=== PATIENT | female | born 1990 | race Caucasian/White ===

== ENCOUNTER 2018-09-30 20:24 | Inpatient (IN) ==
[2018-09-30] MEDS ORDERED: ONDANSETRON 4 MG/2 ML VIAL IV ONE (20:47)
[2018-09-30] MEDS ORDERED: 0.9 % SODIUM CHLORIDE 1,000 ML IV ONE (20:47)
--- NOTE | 2018-09-30 20:56 | Emergency Department Note ---
Abdominal Pain HPI - General Chief Complaint: Abdominal Pain Stated Complaint: abdominal pain Time Seen by Provider: 09/30/18 20:44 Source: patient Mode of arrival: ambulatory Limitations: no limitations - History of Present Illness HPI Narrative: 28-year-old female who previously diagnosed with gallstones on 09/22/2017 here comes in for 3-day history of worsening right upper quadrant pain. Is not taking any medicines for this. She is having some nausea and vomiting as well but no diarrhea. No fever. She is able to urinate. She has an appointment in 4 days with a surgeon over at [facility] Dr. Vernon Roque but pain was so severe that she came in here tonight. No fever no shortness of breath. She is times 5 weeks - Related Data Previous Rx's Medication Instructions Recorded peak flow meter See Dose Instructions .ROUTE 08/29/15 .MEDSUPPLY #1 each Albuterol Sulfate [Ventolin] 2.5 mg NEB Q4HRT #30 ampul.neb 07/01/16 albuterol sulfate HFA 90 3 puff INHALATION Q6H PRN #18 g 09/26/16 mcg/actuation aerosol inhaler acyclovir 800 mg tablet 800 mg PO BID 5 Days #10 tab 10/06/16 Ondansetron [Zofran ODT] 4 mg SL Q4-6HP PRN #14 tab 12/30/17 Allergies Allergy/AdvReac Type Severity Reaction Status Date / Time azithromycin [From Zithromax] AdvReac Unknown Nausea Verified 09/22/18 17:26 contrave AdvReac Intermediate Nausea Uncoded 06/30/16 14:58 Review of Systems All systems ED: reviewed and negative except as stated. Abdominal Pain PMH - Past Medical History Attestation: Yes: The following information was validated with the patient. 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 Jaundiced. Normocephalic atraumatic. Conjunctive are clear sclerae white and anicteric. No nasal discharge or congestion. Oropharynx is pink and moist. Posterior pharynx is clear. Neck is supple without lymphadenopathy or thyromegaly. Heart is regular rate and rhythm no murmur appreciated. Lungs clear to auscultation bilaterally without wheezes rales rhonchi or respiratory distress. Abdomen is soft diffusely tender but worse in the right upper quadrant. No peritoneal signs but some guarding. She is writhing around. No pedal edema. +2 radial pulse. Alert oriented able to answer questions Limitations: no limitations Course Vital Signs Temperature 97.8 F 09/30/18 20:25 Pulse Rate 112 H 09/30/18 20:25 Respiratory Rate 17 09/30/18 20:25 Blood Pressure 112/69 09/30/18 20:25 Pulse Oximetry (%) 96 09/30/18 20:25 Temperature 97.8 F 09/30/18 20:25 Pulse Rate 112 H 09/30/18 20:25 Respiratory Rate 17 09/30/18 20:25 Blood Pressure 112/69 09/30/18 20:25 Pulse Oximetry (%) 96 09/30/18 20:25 Abdominal Pain - Radiology Data Radiology results reviewed: Yes I reviewed the patient's radiology results. Reviewed ultrasound from 09/22/2018 which shows gallstones but no thickened wall. Fatty liver Disposition Pt seen by REFERENCE LIBRARIAN/PA only: No Clinical Impression: Cholecystolithiasis Qualifiers: Cholecystitis presence: with cholecystitis Cholecystitis acuity: acute Summary: Patient was seen and evaluated. Laboratory ordered. IV fluids started along with pain medicine and nausea medicine. Patient will be checked out to Dr. Green at 9 PM for further care and evaluation Disposition: Still a Patient Condition: Serious Referrals: No,PCP [Primary Care Provider] -
[2018-09-30] MEDS: HYDROmorphone 2 MG/ML VIAL IV PRN ×4 (21:00→23:46)
--- NOTE | 2018-09-30 21:14 | Emergency Department Note ---
Abdominal Pain HPI - General Chief Complaint: Abdominal Pain Stated Complaint: abdominal pain Time Seen by Provider: 09/30/18 20:44 Source: patient Mode of arrival: ambulatory Limitations: no limitations - History of Present Illness HPI Narrative: 28 year old female assumed care from Dr. Parker as of 21:13 previously diagnosed with gallstones on 09/22/2017 presenting with 3-day history of worsening right upper quadrant pain, nausea, no emesis nor diarrhea No fever. She is able to urinate. She has an appointment in 4 days with a surgeon over at [facility] Dr. Vernon Roque but pain was so severe that she came in here tonight. No fever no shortness of breath. She is times 5 weeks - Related Data Home Medications Medication Instructions Recorded Confirmed No Known Home Meds 09/30/18 09/30/18 Allergies Allergy/AdvReac Type Severity Reaction Status Date / Time azithromycin [From Zithromax] AdvReac Unknown Nausea Verified 09/22/18 17:26 contrave AdvReac Intermediate Nausea Uncoded 06/30/16 14:58 Review of Systems All systems ED: reviewed and negative except as stated. Abdominal Pain PMH - Past Medical History Attestation: Yes: The following information was validated with the patient. 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 Absent: rigidity Course Vital Signs Temperature 97.8 F 09/30/18 20:25 Pulse Rate 112 H 09/30/18 20:25 Respiratory Rate 17 09/30/18 20:25 Blood Pressure 112/69 09/30/18 20:25 Pulse Oximetry (%) 96 09/30/18 20:25 Temperature 97.8 F 09/30/18 20:25 Pulse Rate 79 09/30/18 21:23 Respiratory Rate 17 09/30/18 20:25 Blood Pressure 122/70 09/30/18 21:23 Pulse Oximetry (%) 97 09/30/18 21:23 Abdominal Pain - [facility] Narrative Medical decision making narrative: patient demonstrating on CBC leukocytosis of 15.8, with known cholelithiasis. venous lactic acid 0.9, CMP normal. US abdomen previously demonstrating multiple small stone collection. Given total of 1mg Diluadid IV, with pain improving from 8/10 to 5/10. Given 1LPM NS. Consulted Dr. Roque, admitted for acute cholecystitis, made NPO, admitted as observation, admitted in fair condition. - Lab Data Lab results reviewed: Yes I reviewed the patient's lab results. Result diagrams: 09/30/18 21:00 09/30/18 21:00 Lab Results 09/30/18 09/30/18 Range/Units 21:00 21:05 WBC 15.7 H (4.5-11.0) K/mcL RBC 4.98 (4.00-5.20) M/mcL Hgb 12.3 (12.0-15.0) g/dL Hct 38.1 (36.0-48.0) % MCV 76.5 L (80.0-100.0) fL MCH 24.7 L (26.0-34.0) pg MCHC 32.3 (31.0-36.0) g/dL RDW 17.7 H (11.5-14.5) % Plt Count 412 (140-440) K/mcL MPV 9.0 (7.4-10.4) fL Band Neutrophils % Not Reportable VBG Lactic Acid 0.9 (0.5-2.0) mmol/L Disposition Pt seen by [employer]/PA only: No Clinical Impression: Cholecystolithiasis Qualifiers: Cholecystitis presence: with cholecystitis Cholecystitis acuity: acute Biliary obstruction: without biliary obstruction Qualified Code(s): K80.00 - Calculus of gallbladder with acute cholecystitis without obstruction Disposition: Xfer As Outpt/Obs ([facility]) Condition: Serious Referrals: No,PCP [Primary Care Provider] -
[2018-09-30 21:57] LABS: Mean Cell Volume 76.5 fL (80.0-100.0); Mean Corpuscular HGB Conc 32.3 g/dL (31.0-36.0); Platelet Count 412 K/mcL (140-440); RBC 4.98 M/mcL (4.00-5.20); Red Cell Distribution Width 17.7 % (11.5-14.5)
[2018-09-30] MEDS ORDERED: cefTRIAXone 1 GM in DEXTROSE 5% IN WATER 50 ML IV SCH (22:15)
[2018-09-30 22:20] LABS: ALT/SGPT 498 U/l (0-40); Albumin 3.6 gm/dL (3.2-5.2); Albumin/Globulin Ratio 1.4 (1.0-2.3); Alkaline Phosphatase 281 U/L (39-117); Amylase 1171 U/L (28-100); Blood Urea Nitrogen 11 mg/dl (6-20)
[2018-09-30] MEDS ORDERED: GADOBENATE DIMEGLUMINE 20 ML/VIAL IV ONE (22:45)
[2018-09-30] MEDS ORDERED: cefTRIAXone 1 GM VIAL ONE (22:56)
[2018-09-30 23:01] LABS: Anisocytosis 1+ (NONE SEEN); Hypochromasia 2+ (NONE SEEN); Lymphocytes % 10 % (15-49); Monocytes % (Manual) 4 % (1-12); Platelet Estimate NORMAL (NORMAL); RBC Morphology ABNORM (NORMAL); Segmented Neutrophils % 86 % (38-78)
[2018-09-30] MEDS: 0.9 % SODIUM CHLORIDE 1,000 ML IV SCH (23:05)
[2018-09-30 23:19] LABS: Lipase 15880 U/L (7-60)
[2018-10-01] MEDS: ONDANSETRON 4 MG/2 ML VIAL IV PRN ×5 (00:48→19:34)
[2018-10-01] MEDS: HYDROmorphone 2 MG/ML VIAL IV PRN ×8 (01:46→19:34)
[2018-10-01] MEDS: 0.9 % SODIUM CHLORIDE 10 ML SYRINGE IV SCH ×3 (05:51→21:33)
[2018-10-01] MEDS: 0.9 % SODIUM CHLORIDE 1,000 ML IV SCH ×3 (06:48→18:42)
[2018-10-01] MEDS ORDERED: ACETAMINOPHEN 1,000 MG/100 ML BOTTLE IV ONE ×3 (08:12→19:31)
[2018-10-01 08:49] LABS: Appearance,Urine CLEAR; Bacteria,Urine 0 /hpf (0); Color,Urine AMBER; Glucose,Urine (UA) NEGATIVE (NEG); Ictotest,Urine POS (NEG); Leukocyte Esterase,Urine NEG /uL (NEG); Mucus,Urine MOD /hpf (0); Protein,Urine 30 mg/dL (NEG); Specific Gravity,Urine 1.021 (1.000-1.035); Urine Blood NEG mg/dL (<0.03); Urine Hyaline Cast 1 /lpf (0-2); Urine RBC 2 /hpf (0-1); Urine Squamous Epithelial Cell 3 /hpf (0-4); Urine WBC 8 /hpf (0-4); Urobilinogen,Urine NEG (NEG)
[2018-10-01] MEDS: ACETAMINOPHEN 1,000 MG in PREMIX 1 BAG IV SCH ×3 (08:56→19:37)
[2018-10-01 09:32] LABS: ALT/SGPT 398 U/l (0-40); Albumin 3.5 gm/dL (3.2-5.2); Albumin/Globulin Ratio 1.3 (1.0-2.3); Alkaline Phosphatase 265 U/L (39-117); Bilirubin,Direct 0.6 mg/dL (0.0-0.3); Blood Urea Nitrogen 11 mg/dl (6-20); Gamma Glutamyl Transpeptidase 415 U/L (5-36); Uric Acid 7.3 mg/dL (2.5-8.0)
[2018-10-01] MEDS: PIPERACILLIN SODIUM/TAZOBACTAM 3.375 GM in DEXTROSE 5% IN WATER 50 ML IV SCH ×4 (10:15→23:03)
--- NOTE | 2018-10-01 11:03 | Magnetic Resonance Report ---
History: Gallstones, abdominal pain and elevated liver enzymes TECHNIQUE: Multiplanar imaging was performed using multiple pulse sequences. 20 mL of MultiHance contrast was injected intravenously and multiphasic postcontrast views were obtained. MRCP images were also created. FINDINGS: There are multiple stones within the lumen of the gallbladder. Gallbladder wall is not abnormally thickened or inflamed. The common bile duct is dilated measures up to 8 mm. No obvious stone is detected in the distal common bile duct. The intrahepatic ducts are nondilated. The liver and spleen are normal in size and homogeneous, without evidence of a mass or inflammation. There is normal enhancement of the hepatic and portal veins. The pancreas is diffusely enlarged. It has increased in size since prior ultrasound done on 09/22/18. Pancreatic duct is nondilated. There is low-level inflammation of the peripancreatic fat and mild stranding of the fat number the mesentery. Trace amount of ascites is seen in the right paracolic gutter. There is no pseudocyst and no evidence of pancreatic mass. The adrenals and kidneys are normal. The aorta is normal in caliber. No adenopathy is present. IMPRESSION: Cholelithiasis Dilated extrahepatic bile ducts. There may be a nonvisualized stone in the distal duct. New onset pancreatitis Interpreted and Authenticated by: Jose Luis Beal 10/01/18
--- NOTE | 2018-10-01 14:27 | General Surg History&Physical ---
History of Present Illness Patient information: Note initiated : 10/01/18 at 2:24 pm Service Date, if different from initiated Date: [09/30/2018] Patient: Amira Kay 28 y/o F admitted on 10/01/18 for abdominal pain. Chief Complaint: [28-year-old female admitt on 30 September for treatment of gallstones disease. The patient had onset of right upper quadrant pain first week of September. Became progressively worse and she was seen in the emergency room on 22 September with complaints of abdominal pain nausea and vomiting. She was noted to have elevation of her liver enzymes including phosphatase. Ultrasound showed fatty liver and gallstones. She was treated symptomatically and discharged to have follow-up with her primary physician. The pain has become progressively worse since that time. Over the past 3 days she has had constant pain with nausea and vomiting after all by mouth intake. She finally returned to the emergency room where on examination she had a tender abdomen with major elevation of liver transaminases and bilirubin. She also had significant elevation amylase and lipase suggestive of biliary pancreatitis.] HPI: Ms. Kay is a 28 year old F Review of Systems - Constitutional anorexia, fatigue, malaise, weight gain - EENT Nose, mouth and throat: no hoarseness, no neck pain, no sinus pain, no sore throat, no tongue swelling - Breasts other (active breast-feeding) - Cardiovascular no dyspnea on exertion, no edema, no leg edema, no palpatations, no rapid heart rate, no syncope - Respiratory cough, wheezing, snoring, no dyspnea on exertion - Gastrointestinal abdominal pain, bloating, cramping, dyspepsia, heartburn, nausea, vomiting - Genitourinary Genitourinary: breast swelling, nocturia, urinary frequency, urinary urgency - Musculoskeletal no arthralgias, no joint swelling, no myalgias - Integumentary no new lesions, no pruritus, no rash, no jaundice - Neurological no headache(s), no paresthesias, no weakness - Psychiatric no anxiety, no confusion, no depression, no irritability, no mood swings - Endocrine no excessive sweating, no palpitations - Hematologic/Lymphatic no easy bleeding, no easy bruising, no lymphadenopathy - Allergic/Immunologic no tongue swelling, no throat swelling, no uticaria, no wheezing, no lip swelling Past History Past medical history: Chronic asthma Gastroesophageal reflux is Past surgical history: Right cervical node biopsies Tonsillectomy Past family history: Diabetes mellitus Past social history: Occasional alcohol use Denies tobacco use Denies drug use Medications and Allergies Home Medications Medication Instructions Recorded Confirmed Type No Known Home Meds 09/30/18 09/30/18 History Allergies Allergy/AdvReac Type Severity Reaction Status Date / Time azithromycin [From Zithromax] AdvReac Intermediate Nausea Verified 09/30/18 23:56 contrave AdvReac Intermediate Nausea Uncoded 06/30/16 14:58 Exam Temp Pulse Resp BP Pulse Ox 98 F 98 H 20 103/67 92 10/01/18 11:45 10/01/18 03:35 10/01/18 11:45 10/01/18 11:45 10/01/18 11:45 - General physical appearance well developed, well nourished, no distress, other ( overweight) - Eyes PERRL, normal ocular movement, icteric - ENT normal pinna, normal nares, normal mucosa, no hearing loss, no congestion - Head Head exam IM: Present: atraumatic, normocephalic - Neck no masses, no bruits, trachea midline, no lymphadenopathy, no venous distension - Cardiovascular Cardiovascular exam IM: Present: normal rate and rhythm, RRR, +S1, +S2. Absent: irregular rhythm, JVD, systolic murmur, tachycardia - Respiratory normal expansion, normal respiratory effort, clear to auscultation - Abdomen Abdomen: Present: soft, tender ( right upper quadrant; subcostal; epigastric tenderness; mild distention), bowel sounds Hernia: Present: none - Genitourinary Present: normal external genitalia - Integumentary Present: no rash, no growths, no abnormal pigmentation - Neurologic Present: normal coordination, normal sensation - Musculoskeletal Present: normal gait, normal posture - Psychiatric Present: oriented to time, oriented to person, oriented to place, speech is normal, memory intact Assessment and Plan (1) Cholelithiasis and acute cholecystitis without obstruction Will have cholecystectomy with cholangiogram after pancreatitis is improved Status: Acute (2) Acute biliary pancreatitis MRCP to be done today Status: Acute (3) Bronchial asthma Continue home medications Status: Chronic
[2018-10-01] MEDS: PANTOPRAZOLE 40 MG VIAL IV SCH ×2 (16:11→23:07)
[2018-10-01] MEDS: FLUCONAZOLE 100 MG TABLET PO SCH (16:11)
[2018-10-01] MEDS ORDERED: ALBUTEROL SULFATE 1 PUFF INHALER INH PRN (16:44)
[2018-10-01] MEDS ORDERED: IPRATROPIUM/ALBUTEROL 3 ML AMPUL.NEB NEB ONE (19:58)
[2018-10-02] MEDS: HYDROmorphone 2 MG/ML VIAL IV PRN ×7 (01:02→20:59)
[2018-10-02] MEDS ORDERED: ACETAMINOPHEN 1,000 MG/100 ML BOTTLE IV ONE (01:05)
[2018-10-02] MEDS: ONDANSETRON 4 MG/2 ML VIAL IV PRN ×4 (01:08→21:00)
[2018-10-02] MEDS: 0.9 % SODIUM CHLORIDE 1,000 ML IV SCH ×3 (01:09→18:04)
[2018-10-02] MEDS: ACETAMINOPHEN 1,000 MG in PREMIX 1 BAG IV SCH (01:10)
[2018-10-02] MEDS: IPRATROPIUM/ALBUTEROL 3 ML AMPUL.NEB NEB PRN ×3 (03:58→17:30)
[2018-10-02] MEDS: PIPERACILLIN SODIUM/TAZOBACTAM 3.375 GM in DEXTROSE 5% IN WATER 50 ML IV SCH ×3 (05:09→17:21)
[2018-10-02] MEDS: 0.9 % SODIUM CHLORIDE 10 ML SYRINGE IV SCH ×3 (05:12→22:19)
[2018-10-02 05:20] LABS: Basophils # (Auto) 0 K/mcL (0.0-0.3); Basophils % (Auto) 0.2 % (0.0-2.0); Eosinophils # (Auto) 0.1 K/mcL (0.0-0.7); Eosinophils % (Auto) 0.7 % (0.0-7.0); Granulocytes % (Auto) 83.2 % (38.0-78.0); Lymphocytes # (Auto) 1.3 K/mcL (1.5-4.8); Lymphocytes % (Auto) 9.1 % (15.5-49.0); Mean Cell Volume 79.2 fL (80.0-100.0); Mean Corpuscular HGB Conc 32.4 g/dL (31.0-36.0); Monocytes % (Auto) 6.8 % (1.0-12.0); Platelet Count 312 K/mcL (140-440); RBC 4.37 M/mcL (4.00-5.20); Red Cell Distribution Width 18.6 % (11.5-14.5)
[2018-10-02 05:48] LABS: ALT/SGPT 225 U/l (0-40); Albumin 3.1 gm/dL (3.2-5.2); Albumin/Globulin Ratio 1.2 (1.0-2.3); Alkaline Phosphatase 174 U/L (39-117); Amylase 302 U/L (28-100); Bilirubin,Direct 0.4 mg/dL (0.0-0.3); Blood Urea Nitrogen 8 mg/dl (6-20); Gamma Glutamyl Transpeptidase 269 U/L (5-36); Uric Acid 3.5 mg/dL (2.5-8.0)
[2018-10-02 06:01] LABS: Lipase 1532 U/L (7-60)
[2018-10-02] MEDS: FLUCONAZOLE 100 MG TABLET PO SCH (08:28)
[2018-10-02] MEDS: PANTOPRAZOLE 40 MG VIAL IV SCH ×2 (08:28→21:00)
[2018-10-02] MEDS ORDERED: FLUCONAZOLE 100 MG TABLET PO SCH (09:00)
[2018-10-02] MEDS ORDERED: ACETAMINOPHEN 1,000 MG/100 ML BOTTLE IV PRN (12:31)
--- NOTE | 2018-10-02 12:33 | General Surgery Progress Note ---
Subjective Patient reports: feels better, still having pain, pain is less, tolerating liquids well, no flatus, nausea, fever Narrative: Note initiated : 10/02/18 at 12:31 pm Service Date, if different from initiated Date: [] Patient: Amira Kay 28 y/o F admitted on 10/01/18 for abdominal pain. Chief Complaint: [patient states that she feels better. She still has upper abdominal pain. She has had low-grade fevers 100. She has nausea but no vomiting. Her heart rate has been 120 and O2 sats have been 88 and 92% on room air. She is receiving nebulizer therapy with some improvement. White blood count 14.7, hemoglobin 11.2, hematocrit 34.6 BUN 8, creatinine 0.7 calcium 8.4, bilirubin 0.9, AST 52, ALT 225, alkaline phosphatase 174, amylase 302, lipase 1532.] Objective Temp Pulse Resp BP Pulse Ox 100.4 F H 108 H 24 H 106/71 91 10/02/18 12:00 10/02/18 11:46 10/02/18 12:00 10/02/18 12:00 10/02/18 12:00 - Additional Data Intake & Output - Last 24 hours: Intake & Output 09/30/18 10/01/18 10/02/18 10/03/18 05:59 05:59 05:59 05:59 Intake Total 2049 3550 1340 Output Total 425 Balance 2049 3550 915 Weight 200 lb 206 lb - General physical appearance well developed, well nourished, no distress, moderate pain - Eyes PERRL, normal ocular movement - ENT normal pinna, normal nares, normal mucosa, no hearing loss, no congestion - Neck no masses, no bruits, trachea midline, no lymphadenopathy, no venous distension - Respiratory normal expansion, normal respiratory effort, clear to auscultation, other (patient's lungs are clear on examination she does complain of shortness of breath and her O2 sats decreased) - Cardiovascular Cardiovascular exam: Present: normal rate and rhythm, RRR, +S1, +S2, tachycardia ( heart rate in the 1:15 to 120 range). Absent: JVD - Abdomen tender ( tenderness in epigastrium and right upper quadrant; no major left upper quadrant tenderness), bowel sounds (present), surgical scars (none), masses (none) - Integumentary no rash, no growths, no abnormal pigmentation - Neurologic normal coordination, normal sensation - Musculoskeletal normal gait, normal posture - Psychiatric oriented to time, oriented to person, oriented to place, speech is normal, devendra ry intact - Labs 10/02/18 03:55 10/02/18 03:55 Diabetes panel 10/02/18 Range/Units 03:55 Sodium 140 (133-145) mmol/L Potassium 3.9 (3.3-5.1) mmol/L Chloride 105 (96-108) mmol/L Carbon Dioxide 23 (22-30) mmol/L BUN 8 (6-20) mg/dl Creatinine 0.7 (0.6-1.1) mg/dl Glucose 74 (70-105) mg/dL Calcium 8.4 L (8.6-10.4) mg/dl AST 52 H (0-37) U/l ALT 225 H (0-40) U/l Alkaline Phosphatase 174 H (39-117) U/L Total Protein 5.6 L (5.9-8.4) gm/dL Albumin 3.1 L (3.2-5.2) gm/dL Triglycerides 74 (<150) mg/dl Calcium panel 10/02/18 Range/Units 03:55 Calcium 8.4 L (8.6-10.4) mg/dl Phosphorus 2.6 L (2.7-4.5) mg/dL Albumin 3.1 L (3.2-5.2) gm/dL Pituitary panel 10/02/18 Range/Units 03:55 Sodium 140 (133-145) mmol/L Potassium 3.9 (3.3-5.1) mmol/L Chloride 105 (96-108) mmol/L Carbon Dioxide 23 (22-30) mmol/L BUN 8 (6-20) mg/dl Creatinine 0.7 (0.6-1.1) mg/dl Glucose 74 (70-105) mg/dL Calcium 8.4 L (8.6-10.4) mg/dl Adrenal panel 10/02/18 Range/Units 03:55 Sodium 140 (133-145) mmol/L Potassium 3.9 (3.3-5.1) mmol/L Chloride 105 (96-108) mmol/L Carbon Dioxide 23 (22-30) mmol/L BUN 8 (6-20) mg/dl Creatinine 0.7 (0.6-1.1) mg/dl Glucose 74 (70-105) mg/dL Calcium 8.4 L (8.6-10.4) mg/dl Total Bilirubin 0.9 (0.0-1.0) mg/dL AST 52 H (0-37) U/l ALT 225 H (0-40) U/l Alkaline Phosphatase 174 H (39-117) U/L Total Protein 5.6 L (5.9-8.4) gm/dL Albumin 3.1 L (3.2-5.2) gm/dL Assessment and Plan (1) Cholelithiasis and acute cholecystitis without obstruction Status: Acute Assessment and plan: Clinically improved but still has significant tenderness Current Visit: Yes (2) Acute biliary pancreatitis Status: Acute Assessment and plan: Amylase and lipase are trending down Current Visit: Yes (3) Bronchial asthma Status: Chronic Current Visit: Yes - Time Spent With Patient Total time spent is greater than 50% in coordination of care (as documented) at patient's floor/unit and/or counseling patient:
[2018-10-02] MEDS: ACETAMINOPHEN 1,000 MG/100 ML BOTTLE IV SCH ×3 (12:39→23:55)
[2018-10-03] MEDS: HYDROmorphone 2 MG/ML VIAL IV PRN ×7 (00:24→22:49)
[2018-10-03] MEDS: PIPERACILLIN SODIUM/TAZOBACTAM 3.375 GM in DEXTROSE 5% IN WATER 50 ML IV SCH ×5 (00:30→22:54)
[2018-10-03] MEDS: 0.9 % SODIUM CHLORIDE 1,000 ML IV SCH ×4 (02:03→19:44)
[2018-10-03] MEDS: ONDANSETRON 4 MG/2 ML VIAL IV PRN ×3 (05:02→19:33)
[2018-10-03] MEDS: 0.9 % SODIUM CHLORIDE 10 ML SYRINGE IV SCH ×3 (05:05→22:12)
[2018-10-03] MEDS: IPRATROPIUM/ALBUTEROL 3 ML AMPUL.NEB NEB PRN ×3 (05:18→19:17)
[2018-10-03 05:21] LABS: Basophils # (Auto) 0 K/mcL (0.0-0.3); Basophils % (Auto) 0.2 % (0.0-2.0); Eosinophils # (Auto) 0.5 K/mcL (0.0-0.7); Eosinophils % (Auto) 2.8 % (0.0-7.0); Granulocytes % (Auto) 77.2 % (38.0-78.0); Lymphocytes # (Auto) 1.9 K/mcL (1.5-4.8); Lymphocytes % (Auto) 11.6 % (15.5-49.0); Mean Cell Volume 79.2 fL (80.0-100.0); Mean Corpuscular HGB Conc 31.4 g/dL (31.0-36.0); Monocytes # (Auto) 1.4 K/mcL (0.1-0.9); Monocytes % (Auto) 8.2 % (1.0-12.0); Platelet Count 261 K/mcL (140-440); RBC 3.85 M/mcL (4.00-5.20); Red Cell Distribution Width 18.9 % (11.5-14.5)
[2018-10-03 05:39] LABS: ALT/SGPT 133 U/l (0-40); Albumin 2.7 gm/dL (3.2-5.2); Albumin/Globulin Ratio 1.1 (1.0-2.3); Alkaline Phosphatase 126 U/L (39-117); Amylase 149 U/L (28-100); Bilirubin,Direct 0.3 mg/dL (0.0-0.3); Blood Urea Nitrogen 4 mg/dl (6-20); Gamma Glutamyl Transpeptidase 182 U/L (5-36); Uric Acid 3.5 mg/dL (2.5-8.0)
[2018-10-03 05:49] LABS: Lipase 489 U/L (7-60)
[2018-10-03] MEDS: ACETAMINOPHEN 1,000 MG/100 ML BOTTLE IV SCH ×4 (05:58→23:40)
[2018-10-03] MEDS: FLUCONAZOLE 100 MG TABLET PO SCH (09:03)
[2018-10-03] MEDS: PANTOPRAZOLE 40 MG VIAL IV SCH ×2 (09:03→20:13)
--- NOTE | 2018-10-03 14:12 | General Surgery Progress Note ---
Subjective Patient reports: feels better, pain is less, tolerating liquids well, flatus, afebrile Narrative: Note initiated : 10/03/18 at 2:10 pm Service Date, if different from initiated Date: [] Patient: Amira Kay 28 y/o F admitted on 10/01/18 for abdominal pain. Chief Complaint: [patient continues to improve. Her pain was much better. She denies nausea. Maximum temperature is 99.1. Heart rate 102-120 ;liver panel continues to improve ;amylase 149, lipase 489; white blood count 16.6 hematocrit 30.5; BUN and creatinine] Objective Temp Pulse Resp BP Pulse Ox 98.7 F 112 H 16 108/65 96 10/03/18 11:53 10/03/18 06:52 10/03/18 11:53 10/03/18 11:53 10/03/18 11:53 - Additional Data Intake & Output - Last 24 hours: Intake & Output 10/01/18 10/02/18 10/03/18 10/04/18 05:59 05:59 05:59 05:59 Intake Total 2049 3550 4660 1490 Output Total 1425 850 Balance 2049 3550 3235 640 Weight 200 lb 206 lb 207 lb 8 oz - General physical appearance well developed, well nourished, no distress - Eyes PERRL, normal ocular movement - ENT normal pinna, normal nares, normal mucosa, no hearing loss, no congestion - Neck no masses, no bruits, trachea midline, no lymphadenopathy, no venous distension - Respiratory normal expansion, normal respiratory effort, clear to auscultation - Cardiovascular Cardiovascular exam: Present: normal rate and rhythm, RRR, +S1, +S2. Absent: irregular rhythm, JVD, tachycardia - Abdomen tender (mild right upper quadrant tenderness ; epigastric and left upper quadrant tenderness has resolved; good active bowel sounds), bowel sounds (present), surgical scars (none), masses (none) - Integumentary no rash, no growths, no abnormal pigmentation - Neurologic normal coordination, normal sensation - Musculoskeletal normal gait, normal posture - Psychiatric oriented to time, oriented to person, oriented to place, speech is normal, memory intact - Labs 10/03/18 04:20 10/03/18 04:20 Diabetes panel 10/03/18 Range/Units 04:20 Sodium 138 (133-145) mmol/L Potassium 3.5 (3.3-5.1) mmol/L Chloride 103 (96-108) mmol/L Carbon Dioxide 22 (22-30) mmol/L BUN 4 L (6-20) mg/dl Creatinine 0.6 (0.6-1.1) mg/dl Glucose 52 L (70-105) mg/dL Calcium 8.1 L (8.6-10.4) mg/dl AST 27 (0-37) U/l ALT 133 H (0-40) U/l Alkaline Phosphatase 126 H (39-117) U/L Total Protein 5.2 L (5.9-8.4) gm/dL Albumin 2.7 L (3.2-5.2) gm/dL Triglycerides 89 (<150) mg/dl Calcium panel 10/03/18 Range/Units 04:20 Calcium 8.1 L (8.6-10.4) mg/dl Phosphorus 3.0 (2.7-4.5) mg/dL Albumin 2.7 L (3.2-5.2) gm/dL Pituitary panel 10/03/18 Range/Units 04:20 Sodium 138 (133-145) mmol/L Potassium 3.5 (3.3-5.1) mmol/L Chloride 103 (96-108) mmol/L Carbon Dioxide 22 (22-30) mmol/L BUN 4 L (6-20) mg/dl Creatinine 0.6 (0.6-1.1) mg/dl Glucose 52 L (70-105) mg/dL Calcium 8.1 L (8.6-10.4) mg/dl Adrenal panel 10/03/18 Range/Units 04:20 Sodium 138 (133-145) mmol/L Potassium 3.5 (3.3-5.1) mmol/L Chloride 103 (96-108) mmol/L Carbon Dioxide 22 (22-30) mmol/L BUN 4 L (6-20) mg/dl Creatinine 0.6 (0.6-1.1) mg/dl Glucose 52 L (70-105) mg/dL Calcium 8.1 L (8.6-10.4) mg/dl Total Bilirubin 0.7 (0.0-1.0) mg/dL AST 27 (0-37) U/l ALT 133 H (0-40) U/l Alkaline Phosphatase 126 H (39-117) U/L Total Protein 5.2 L (5.9-8.4) gm/dL Albumin 2.7 L (3.2-5.2) gm/dL Assessment and Plan (1) Cholelithiasis and acute cholecystitis without obstruction Status: Acute Assessment and plan: Clinically improved We'll schedule for cholecystectomy with cholangiogram tomorrow Current Visit: Yes (2) Acute biliary pancreatitis Status: Acute Assessment and plan: Amylase and lipase are trending down Current Visit: Yes (3) Bronchial asthma Status: Chronic Current Visit: Yes - Time Spent With Patient Total time spent is greater than 50% in coordination of care (as documented) at patient's floor/unit and/or counseling patient:
[2018-10-04] MEDS: HYDROmorphone 2 MG/ML VIAL IV PRN ×6 (01:02→22:24)
[2018-10-04] MEDS: IPRATROPIUM/ALBUTEROL 3 ML AMPUL.NEB NEB PRN ×3 (01:05→23:34)
[2018-10-04] MEDS: 0.9 % SODIUM CHLORIDE 1,000 ML IV SCH ×6 (03:40→23:21)
[2018-10-04 05:35] LABS: Basophils # (Auto) 0 K/mcL (0.0-0.3); Basophils % (Auto) 0.2 % (0.0-2.0); Eosinophils # (Auto) 0.2 K/mcL (0.0-0.7); Eosinophils % (Auto) 1.7 % (0.0-7.0); Granulocytes % (Auto) 80.4 % (38.0-78.0); Lymphocytes # (Auto) 1.5 K/mcL (1.5-4.8); Lymphocytes % (Auto) 10.4 % (15.5-49.0); Mean Cell Volume 78.6 fL (80.0-100.0); Mean Corpuscular HGB Conc 32.3 g/dL (31.0-36.0); Monocytes % (Auto) 7.3 % (1.0-12.0); Platelet Count 288 K/mcL (140-440); RBC 3.65 M/mcL (4.00-5.20); Red Cell Distribution Width 19.1 % (11.5-14.5)
[2018-10-04] MEDS: ONDANSETRON 4 MG/2 ML VIAL IV PRN ×4 (05:35→22:28)
[2018-10-04] MEDS: PIPERACILLIN SODIUM/TAZOBACTAM 3.375 GM in DEXTROSE 5% IN WATER 50 ML IV SCH ×4 (05:40→23:20)
[2018-10-04 06:00] LABS: ALT/SGPT 98 U/l (0-40); Albumin 2.7 gm/dL (3.2-5.2); Alkaline Phosphatase 114 U/L (39-117); Amylase 62 U/L (28-100); Bilirubin,Direct 0.2 mg/dL (0.0-0.3); Blood Urea Nitrogen 2 mg/dl (6-20); Gamma Glutamyl Transpeptidase 147 U/L (5-36); Lipase 120 U/L (7-60); Uric Acid 3.7 mg/dL (2.5-8.0)
[2018-10-04] MEDS: ACETAMINOPHEN 1,000 MG/100 ML BOTTLE IV SCH ×2 (06:07→13:33)
[2018-10-04] MEDS: 0.9 % SODIUM CHLORIDE 10 ML SYRINGE IV SCH ×3 (06:36→23:07)
[2018-10-04] MEDS: PANTOPRAZOLE 40 MG VIAL IV SCH ×2 (07:23→23:21)
[2018-10-04] MEDS: FLUCONAZOLE 100 MG TABLET PO SCH (07:23)
[2018-10-04 11:03] LABS: HCG,Serum NEGATIVE <10 (<10 mIU/ml)
[2018-10-04] MEDS ORDERED: SCOPOLAMINE 1 PATCH PATCH TOPICAL ONE (12:48)
[2018-10-04] MEDS ORDERED: fentaNYL 100 MCG/2 ML VIAL IV PRN (13:32)
[2018-10-04] MEDS ORDERED: ONDANSETRON 4 MG/2 ML VIAL IV PRN (13:32)
[2018-10-04] MEDS ORDERED: IPRATROPIUM/ALBUTEROL 3 ML AMPUL.NEB NEB PRN (13:32)
[2018-10-04] MEDS ORDERED: PROMETHAZINE 25 MG/ML VIAL IM PRN (13:32)
[2018-10-04] MEDS ORDERED: FLUMAZENIL 0.1 MG/ML ML IV PRN (13:32)
[2018-10-04] MEDS ORDERED: NALOXONE HCL 0.4 MG/ML VIAL IV PRN (13:32)
[2018-10-04] MEDS ORDERED: MEPERIDINE 50 MG/ML INJECTION IM PRN (13:32)
[2018-10-04] MEDS ORDERED: ACETAMINOPHEN 1,000 MG/100 ML BOTTLE IV ONE (13:32)
[2018-10-04] MEDS ORDERED: PROMETHAZINE 25 MG/ML VIAL IV PRN (13:32)
[2018-10-04] MEDS ORDERED: METHOCARBAMOL 1,000 MG/10 ML VIAL IV PRN (13:32)
[2018-10-04] MEDS ORDERED: BENZOCAINE/MENTHOL 1 LOZENGE PO PRN (13:32)
[2018-10-04] MEDS ORDERED: LACTATED RINGERS 250 ML IV PRN (13:32)
[2018-10-04] MEDS ORDERED: LACTATED RINGERS 1,000 ML IV SCH (13:45)
[2018-10-04] MEDS ORDERED: IOPAMIDOL 100 ML BOTTLE IJ ONE (14:12)
--- NOTE | 2018-10-04 14:43 | Brief Operative Note ---
Date of procedure: 10/04/18 Pre-op diagnosis: cholelithiasis with cholecystitis Post-op diagnosis: other (cholelithiasis with cholecystitis;appendiceal mass with inflammation) Procedure: laparoscopic cholecystectomy with cholangiogram;laparoscopic appendectomy Grafts/Implants: No (jpx1) Anesthesia: GETA Findings: large volume of bilious ascites;inflamed gallbladder;normal cholangiogram; mass of midportion of appendix Complications: none Surgeon: Semaj Roque Estimated blood loss (cc): 25 Specimens Removed/Pathology: other (gallbladder ;appendix) Condition: stable Disposition: PACU
[2018-10-04] MEDS ORDERED: ONDANSETRON 4 MG/2 ML VIAL IV ONE (14:59)
[2018-10-04] MEDS ORDERED: KETAMINE 10 MG/ML ML IV ONE (14:59)
[2018-10-04] MEDS ORDERED: PROPOFOL 200 MG/20 ML VIAL IV ONE (14:59)
[2018-10-04] MEDS ORDERED: fentaNYL 100 MCG/2 ML VIAL IV ONE (14:59)
[2018-10-04] MEDS ORDERED: GLYCOPYRROLATE 0.2 MG/ML VIAL IV ONE (14:59)
[2018-10-04] MEDS ORDERED: KETOROLAC 30 MG/ML VIAL IV ONE (14:59)
[2018-10-04] MEDS ORDERED: DEXAMETHASONE 10 MG/ML VIAL IV ONE (14:59)
[2018-10-04] MEDS ORDERED: LIDOCAINE HCL/PF 100 MG/5 ML SYRINGE IV ONE (14:59)
[2018-10-04] MEDS ORDERED: METOCLOPRAMIDE 10 MG/2 ML VIAL IV ONE (14:59)
[2018-10-04] MEDS ORDERED: ESMOLOL 100 MG/10 ML VIAL IV ONE (14:59)
[2018-10-04] MEDS ORDERED: FAMOTIDINE/PF 20 MG/2 ML VIAL IV ONE (14:59)
[2018-10-04] MEDS ORDERED: VECURONIUM BROMIDE 10 MG VIAL IV ONE (14:59)
[2018-10-04] MEDS ORDERED: HYDROmorphone 2 MG/ML VIAL IV ONE (14:59)
[2018-10-04] MEDS ORDERED: MIDAZOLAM 5 MG/5 ML VIAL IV ONE (14:59)
[2018-10-04] MEDS ORDERED: NEOSTIGMINE 1 MG/ML VIAL IV ONE (14:59)
[2018-10-04] MEDS ORDERED: ALBUTEROL SULFATE 1 PUFF INHALER INH PRN (15:39)
--- NOTE | 2018-10-04 15:56 | XRay Report ---
CLINICAL INFORMATION: laparoscopic cholecystecomy with grams COMPARISON: None. FINDINGS: Intraoperative injection of the cystic duct shows common bile duct normal in caliber with smooth tapering near the ampullary region. No filling defects to suggest choledocholithiasis. Duodenal contrast is noted IMPRESSION: Negative - no evidence of intraductal stone Interpreted and Authenticated by: Souleymane Clemente 10/04/18
[2018-10-05] MEDS: ACETAMINOPHEN 1,000 MG/100 ML BOTTLE IV SCH ×4 (00:28→19:06)
[2018-10-05] MEDS: HYDROmorphone 2 MG/ML VIAL IV PRN ×6 (00:38→18:22)
[2018-10-05] MEDS: ONDANSETRON 4 MG/2 ML VIAL IV PRN (05:18)
[2018-10-05] MEDS: PIPERACILLIN SODIUM/TAZOBACTAM 3.375 GM in DEXTROSE 5% IN WATER 50 ML IV SCH ×3 (06:12→18:21)
[2018-10-05] MEDS: 0.9 % SODIUM CHLORIDE 1,000 ML IV SCH ×2 (06:14→14:20)
[2018-10-05] MEDS: 0.9 % SODIUM CHLORIDE 10 ML SYRINGE IV SCH ×3 (06:17→14:38)
[2018-10-05 06:27] LABS: ALT/SGPT 81 U/l (0-40); Albumin 2.9 gm/dL (3.2-5.2); Alkaline Phosphatase 111 U/L (39-117); Bilirubin,Direct < 0.2 mg/dL (0.0-0.3); Blood Urea Nitrogen 3 mg/dl (6-20); Gamma Glutamyl Transpeptidase 133 U/L (5-36); Lipase 33 U/L (7-60); Uric Acid 3.9 mg/dL (2.5-8.0)
[2018-10-05] MEDS: PANTOPRAZOLE 40 MG VIAL IV SCH (08:35)
[2018-10-05] MEDS ORDERED: FLUCONAZOLE 100 MG TABLET PO SCH (09:00)
[2018-10-05 09:42] LABS: Basophils # (Auto) 0 K/mcL (0.0-0.3); Basophils % (Auto) 0 % (0.0-2.0); Eosinophils # (Auto) 0 K/mcL (0.0-0.7); Eosinophils % (Auto) 0.1 % (0.0-7.0); Granulocytes % (Auto) 91.9 % (38.0-78.0); Lymphocytes # (Auto) 0.7 K/mcL (1.5-4.8); Lymphocytes % (Auto) 5.5 % (15.5-49.0); Mean Cell Volume 79.7 fL (80.0-100.0); Mean Corpuscular HGB Conc 31.8 g/dL (31.0-36.0); Monocytes # (Auto) 0.3 K/mcL (0.1-0.9); Monocytes % (Auto) 2.5 % (1.0-12.0); Platelet Count 307 K/mcL (140-440); RBC 3.54 M/mcL (4.00-5.20); Red Cell Distribution Width 19.1 % (11.5-14.5)
[2018-10-05] MEDS: IPRATROPIUM/ALBUTEROL 3 ML AMPUL.NEB NEB PRN (16:08)
--- NOTE | 2018-10-05 18:42 | Discharge Summary ---
Providers - Providers Patient information: Note initiated : 10/05/18 at 6:38 pm Service Date, if different from initiated Date: [] Patient: Amira Kay 28 y/o F admitted on 10/01/18 for Laparoscopic Cholecystectomy. Chief Complaint: [] Date of admission: 09/30/18 Discharge date: 10/05/18 Attending physician: Semaj Roque Hospitalization Hospital course: 28-year-old female admitted on 30 September with acute biliary pancreatitis and cholecystitis with cholelithiasis. She had white blood count of 15,700 with elevated LFTs. Her lipase was 1532 and amylase was 302. MRCP did not show any biliary stones. The patient was treated with antibiotics and monitor. Her LFTs amylase and lipase trended down. 26 September laparoscopic cholecystectomy was done. She was found to have gallstones with acute cholecystitis. She also had a mass in the midportion of the appendix and appendectomy was done. She has done well in the postop period except for mild pain and was stable for discharge. Her LFTs amylase and lipase are normal.. Discharge diagnosis: acute cholecystitis with cholelithiasis Secondary discharge diagnosis: Acute biliary pancreatitis Mass of appendix Reason for admission: acute pancreatitis Procedures: Laparoscopic cholecystectomy and laparoscopic appendectomy Pertinent studies/significant findings: CT of abdomen and pelvis MRCP Complications: None Exam Temp Pulse Resp BP Pulse Ox 98.5 F 64 18 121/79 92 10/05/18 17:15 10/05/18 17:15 10/05/18 17:15 10/05/18 17:15 10/05/18 17:15 - General physical appearance well developed, well nourished, no distress - Eyes PERRL, normal ocular movement - ENT normal pinna, normal nares, normal mucosa, no hearing loss, no congestion - Head Head exam IM: Present: atraumatic, normocephalic - Neck no masses, no bruits, trachea midline, no lymphadenopathy, no venous distension - Cardiovascular Cardiovascular exam IM: Present: normal rate and rhythm - Respiratory normal expansion, normal respiratory effort, clear to percussion, clear to auscultation - Abdomen Abdomen: Present: soft, tender (mild tenderness around the port sites otherwise abdomen is benign; good active bowel sounds), bowel sounds Hernia: Present: none - Genitourinary Present: normal external genitalia - Integumentary Present: no rash, no growths, no abnormal pigmentation - Neurologic Present: normal coordination, normal sensation - Musculoskeletal Present: normal gait, normal posture - Psychiatric Present: oriented to time, oriented to person, oriented to place, speech is normal, memory intact Discharge Plan - Patient/Caregiver Discharge Instructions Activity: increase activity as tolerated Diet: Low Fat Additional Instructions: EMPTY drain canister As needed leave dressings in place Prescriptions: oxyCODONE HCL/ACETAMINOPHEN [Endocet 10-325 mg Tablet] 1 tab PO Q4H PRN #60 tab PRN Reason: Pain - Follow up Plan Follow up with: No,PCP [Primary Care Provider] - Disposition: Home, Self-Care Prognosis: Good Rehab Potential: Good I certify that the patient requires SNF services.: No Overall status at discharge: patient is progressing back to baseline Pending Studies Resuscitation Status Full Code Diet Regular Diet Start ThuOct 05 0848 Albuterol/Ipratropium (Duoneb) 3 ml NEB Q4HP PRN PRN Reason: Shortness Of Breath Last Admin: 10/05/18 16:08 Dose: 3 ml Documented by: Admin: 10/04/18 23:34 Dose: 3 ml Documented by: AMY Fluconazole (Diflucan) 100 mg PO DAILY ALEK Last Admin: 10/05/18 08:35 Dose: 100 mg Documented by: LATRuddy Hydromorphone HCl (Dilaudid) 1.5 mg IV Q2HP PRN PRN Reason: PAIN LEVEL > 6 Last Admin: 10/05/18 18:22 Dose: 1.5 mg Documented by: LATRuddy Admin: 10/05/18 14:40 Dose: 1.5 mg Documented by: Admin: 10/05/18 10:56 Dose: 1.5 mg Documented by: [email or web address] Admin: 10/05/18 08:44 Dose: 1.5 mg Documented by: [email or web address] Admin: 10/05/18 05:19 Dose: 1.5 mg Documented by: Admin: 10/05/18 00:38 Dose: 1.5 mg Documented by: Admin: 10/04/18 22:24 Dose: 1.5 mg Documented by: Admin: 10/04/18 19:34 Dose: 1.5 mg Documented by: Admin: 10/04/18 16:18 Dose: 0.5 mg Documented by: GUY Sodium Chloride (Sodium Chloride 0.9%) 1,000 mls @ 150 mls/hr IV .Q6H40M [facility] Last Admin: 10/05/18 14:20 Dose: 150 mls/hr Documented by: Infusion: 10/05/18 14:19 Dose: 0 mls/hr Documented by: Admin: 10/05/18 06:14 Dose: 150 mls/hr Documented by: Infusion: 10/05/18 06:02 Dose: 150 mls/hr Documented by: Admin: 10/04/18 23:21 Dose: 150 mls/hr Documented by: Infusion: 10/04/18 23:07 Dose: 150 mls/hr Documented by: Admin: 10/04/18 16:26 Dose: 150 mls/hr Documented by: GUY Acetaminophen (Ofirmev) 1,000 mg in 100 mls @ 200 mls/hr IV Q6 [facility] Last Infusion: 10/05/18 14:38 Dose: 200 mls/hr Documented by: Admin: 10/05/18 13:01 Dose: 200 mls/hr Documented by: Infusion: 10/05/18 06:16 Dose: 0 mls/hr Documented by: Admin: 10/05/18 05:16 Dose: 200 mls/hr Documented by: Infusion: 10/05/18 02:21 Dose: 0 mls/hr Documented by: Admin: 10/05/18 00:28 Dose: 200 mls/hr Documented by: AMY Piperacillin Sod/Tazobactam (Sod 3.375 gm/ Dextrose) 50 mls @ 100 mls/hr IV Q6H [facility] Last Admin: 10/05/18 18:21 Dose: 100 mls/hr Documented by: Infusion: 10/05/18 16:10 Dose: 100 mls/hr Documented by: Admin: 10/05/18 14:16 Dose: 100 mls/hr Documented by: Infusion: 10/05/18 06:45 Dose: 100 mls/hr Documented by: [email or web address] Admin: 10/05/18 06:12 Dose: 100 mls/hr Documented by: Infusion: 10/05/18 01:00 Dose: 0 mls/hr Documented by: Admin: 10/04/18 23:20 Dose: 100 mls/hr Documented by: Infusion: 10/04/18 23:07 Dose: 0 mls/hr Documented by: Admin: 10/04/18 18:08 Dose: 100 mls/hr Documented by: GUY Ondansetron HCl (Zofran) 4 mg IV Q4-6HP PRN PRN Reason: Nausea And Vomiting Last Admin: 10/05/18 05:18 Dose: 4 mg Documented by: Admin: 10/04/18 22:28 Dose: 4 mg Documented by: Admin: 10/04/18 16:27 Dose: 4 mg Documented by: GUY Pantoprazole Sodium (Protonix) 40 mg IV Q12H [facility] Last Admin: 10/05/18 08:35 Dose: 40 mg Documented by: Admin: 10/04/18 23:21 Dose: 40 mg Documented by: AMY Sodium Chloride (Saline Flush) 10 ml IV Q8 [facility] Last Admin: 10/05/18 14:38 Dose: Not Given Documented by: Admin: 10/05/18 08:35 Dose: 10 ml Documented by: Admin: 10/05/18 06:17 Dose: Not Given Documented by: Admin: 10/04/18 23:07 Dose: Not Given Documented by: AMY Shift Summary 10/05/18 04:26 Shift Summary by Ethan Huerta&Ox4; stomach distended with five lap sites well approximated with federica and tegaderm; OMAR drain to right abdomen draining serosanginous fluid; voiding well post operatively; PVR at 20:00 553mL; then voided 800mL at 01:30 with PVR 192mL; medicated with prn IV dilaudid x3 and prn IV zofran x1 with scopalamine patch behind left ear, anticipating one more dose of dilaudid and zofran prior to end of shift; x1 duoneb given overnight; q 6 hour Zosyn and IV Ofirmev; maintaining O2 sats on RA, VSS; had a BM prior to surgery yesterday; getting up to BR independently; pumping and dumping breasts; will update at bedside. Initialized on 10/05/18 04:26 - END OF NOTE
--- NOTE | 2018-10-07 13:42 | Surgical Pathology Report ---
HISTOLOGY SPECIMEN MICROSCOPIC DIAGNOSIS SPECIMEN A - GALLBLADDER, CHOLECYSTECTOMY: -- ACUTE AND CHRONIC CHOLECYSTITIS WITH CHOLELITHIASIS. SPECIMEN B - APPENDIX, APPENDECTOMY: -- APPENDIX WITH MILD LUMINAL DILATATION AND MILD ACUTE SEROSITIS, SEE COMMENT. (RLF:sln) COMMENT: The appendix shows dilated lumen and mild acute serositis. The inflammation could be related to peritonitis associated with cholecystitis, or other inflammatory process (e.g. salpingitis, diverticulitis). Clinical correlation is recommended. MICROSCOPIC DESCRIPTION In the appendix, there is a focus of epithelioid cells within the adipose tissue and immunohistochemical studies are performed (block B1). The cells are macrophages (CD68+) and no occult invasive process is identified (Pancytokeratin plus is negative). Some of the tests reported here may not have been cleared or approved by the [place] Food and Drug Administration (FDA). However, the FDA has determined that such clearance or approval is not necessary. Pursuant to the requirements of CLIA, this laboratory has established and verified the accuracy and precision of all tests, and additional information about these tests is available upon request. All technical controls are adequate. PROCEDURAL IMPRESSION Cholelithiasis; acute cholecystitis without obstruction; appendix mass. GROSS DESCRIPTION Specimen A: Received in formalin labeled gallbladder, is a purple-ceja gallbladder that measures 9.6 x 4.4 x 3.4 cm. There are multiple metal clips identified including one on the cystic duct. There is viscous green fluid and multiple round yellow stones from less than 0.1 to 0.2 cm. The mucosa is snyder and covered with lacy yellow pigmentation. The wall is up to 0.2 cm thick. Production Supv sections submitted - one cassette. Specimen B: Received in formalin labeled appendix, is a ceja-snyder appendix with attached ceja-snyder fat. The appendix measures 10.8 cm in length and up to 1.8 cm in diameter. The resection margin is stapled. This is inked black. There is attached snyder fat. There is a 2.2 cm stapled margin within the fat near the resection margin. The serosa is snyder. There are a few raised areas on the serosal surface. Sectioning reveals green-snyder fecal material. Totally submitted - five cassettes. (SCB:sln) Electronically Signed by: Lexus Hein M.D.
--- NOTE | 2018-10-11 15:16 | Operative Note ---
DATE OF OPERATION: 10/04/2018 PREOPERATIVE DIAGNOSIS: Cholelithiasis with cholecystitis. POSTOPERATIVE DIAGNOSIS: Cholelithiasis with cholecystitis and appendiceal mass with inflammation. PROCEDURES: 1. Laparoscopic cholecystectomy with cholangiogram. 2. Laparoscopic appendectomy. FINDINGS: Large volume of bilious ascites, inflamed gallbladder, normal cholangiogram, mass of the mid portion of the appendix. DESCRIPTION OF PROCEDURE: Under general anesthesia, the patient's abdomen was prepped and draped in a sterile field. A time-out procedure was carried out as per protocol. Supraumbilical incision was made and Veress needle was inserted. Abdomen was insufflated with 3 liters of CO2. The 12 mm port was placed. Laparoscope was placed. There was a very large volume of bilious ascites above the liver around the stomach and spleen and the subhepatic area and in the pelvis. This was suction in the upper abdomen. Under videoscopic guidance, a 12 mm port and two 5 mm ports were placed in the right subcostal region. The gallbladder was inflamed and wall was thickened. It was grasped with self-retaining graspers. Cystic duct was dissected. Cystic duct was followed back to the gallbladder where it was clipped with an endoclip. A cholangiogram catheter was passed transabdominally and a small incision was made in the cystic duct at its junction with the gallbladder. Cholangiocatheter was placed in the cystic duct and clipped. Cholangiogram was done and it revealed normal common bile duct with free flow into the duodenum with normal intrahepatic ducts. There were no filling defects. The catheter was removed, and the gallbladder was clipped with 4 clips distally and divided. The cystic artery was dissected, clipped with five clips and divided. The gallbladder was then from the infrahepatic bed using electrocautery. It was placed in an Endopouch and retrieved. Irrigation in the bed revealed no significant bleeding. A OMAR drain was placed and positioned in the subhepatic space. The lower abdomen was inspected and it appeared that the appendix was swollen in the mid portion. There appeared to be a firm nodular swelling in the area. It was elected to do an appendectomy. The patient was placed in deep Trendelenburg position, and a 5 mm port was placed in the suprapubic midline. A 12 mm port was placed in the left lower quadrant. The appendix was grasped with a self-retaining grasper. The mesoappendix and the base of the appendix were serially dissected and were then transected using the EndoGIA stapler. The appendix was placed in the EndoCatch device and was retrieved. The bed of the appendix was inspected. There was a small amount of bleeding in the mesoappendix, which was controlled with Hemoclip and electrocautery. Irrigation was carried out. It did not appear to need a drain for the appendiceal area. CO2 was allowed to escape from the abdomen and the ports were removed. Fascia at the umbilicus was closed with interrupted 0 Vicryl. Incisions were closed with skin clips and Tegaderm dressings were placed. The drain was secured with 2-0 nylon. The patient tolerated the procedure well. She was awakened and transferred to a bed and taken to the postanesthetic care unit in a stable, satisfactory condition. LCS:evan Job ID: [id number] Doc ID: [id number] Semaj Roque M.D.
== END 2018-10-05 20:22 | disposition home or self-care (01) | DRG 417 ==
LOC: ED 20:24 → MEDSUR 20:24
PROVIDERS: ADMIT Family Medicine Adult Medicine; ATTEND Family Medicine Adult Medicine